=== PATIENT | male | born 1950 | race Caucasian/White ===

== ENCOUNTER 2017-01-29 09:08 | Day surgery (SDC) | payer OTHER, MEDICARE ==
[2017-01-01 11:15] VITALS: BMI 31.1
[2017-01-29] MEDS ORDERED: PROPOFOL 20 ML ONE ×2 (09:34)
[2017-01-29 10:21] VITALS: TEMP 98
[2017-01-29 10:58] VITALS: BP 146/89; PULSE 53
== END 2017-01-29 10:40 | disposition home or self-care (01) ==
LOC: FASU-ENDO 09:08
PROVIDERS: ATTEND Internal Medicine Gastroenterology
PROC: 0DJD8ZZ Inspection of Lower Intestinal Tract, Via Natural or Artificial Opening Endoscopic (ICD-10-PCS; principal; 2017-01-29 09:38)
DX: Z86.010 Personal history of colon polyps (principal); Z80.0 Family history of malignant neoplasm of digestive organs; K57.30 Diverticulosis of large intestine without perforation or abscess without bleeding